=== PATIENT | male | born 1950 | race Caucasian/White ===

== ENCOUNTER 2025-03-29 08:09 | Outpatient (AMB) | payer MEDICARE, SELFPAY ==
--- NOTE | 2025-03-29 08:11 | AM.OFFWIN_ITS ---
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 - The pain began approximately 15 days a go and was initially localized to the hip, later radiating to the groin. - The patient describes the pain as zing ing and stabbing, occasionally severe enough to nearly cause falls. - The patient has a history of bilateral knee replacements in the past. - The patient remains active, engaging i n activities such as fishing, and uses Tylenol for pain management during these activities. - He has a follow up appointment with Dr Milagro Gregg in 2 weeks. - Previously had pain on the left hip bu t the pain had resolved and now is on the right. - The patient has not experienced numbne ss, tingling, or bowel/bladder dysfunction. - Has pain with ambulation and has been having a hard time controlling his pain. - He denies falls, CP, SOB, abd pain, sa ddle anesthesia, numbness, tingling, leg pain, or back pain, Physical Exam General: cooperative, healthy appearing and comfortable, patient oriented x3 Head: Normal to inspection, normocephalic/atraumatic Effort & Inspection: Normal respiratory effort and able to speak in complete sentences. Cardiac: RRR, no M/R/G noted. Normal S1 and S2. Respiratory: Clear to auscultation bilaterally. No w/r/r noted. Back/spine: Cervical, thoracic and lumbar spine normal to inspection. Cervical ROM normal, no midline spinous tenderness noted. Thoracic ROM normal, lumbar ROM normal. No midline vertebral spinous tenderness noted. No step offs noted. No TTP of the thoracic or lumbar paraspinous or paravertebral muscles. FROM of the hips bilaterally. No TTP of the pelvic brims, trocanteric bursas bilaterally. Adduction and abduction of the hips are intact. No click on ROM. DTR are 2+ on the lower extremities noted. Ambulates with a steady gait. Extremities: Straight leg raise test negative on right; Straight leg raise test negative on left; motor strength normal 5/5 bilaterally. Neuro: Sensation intact. No numbness or tingling reported. Patient was informed and verbally consented to the use of an ambient scribe for clinic note documentation during this visit. Review of Systems Const All systems reviewed & are unremarkable except as noted in HPI and below Physical Exam Vital Signs: Last Vital Signs Temp 98.1 F 03/29/25 08:17 Pulse 66 03/29/25 08:17 BP 142/66 H 03/29/25 08:17 Pulse Ox 95 03/29/25 08:17 Oxygen Delivery Method Room Air 03/29/25 08:17 BMI result Body Mass Index 38.2 Results Reviewed Results Reviewed: Reviewed his hip x-ray in the office Assessment & Plan Assessment & Plan (1) Hip pain, right: Code(s): M25.551 - Pain in right hip Plan Most likely arthritis vs strain vs bursitis vs tendonitis Plan - Plan includes obtaining x-rays to assess the extent of arthritis and potential need for hip replacement. - Consideration of a lidocaine patch and anti-inflammatory medication for pain management. - Flexeril as needed for pain. - Referral to Dr. Gregg for further evaluation and management, including potential cortisone injection. Orders: Orders XR hip RT w PEL1V Today M25.551 - Pain in right hip Medications: New lidocaine 4% 1 patch topical DAILY PRN 10 ea 0RF pain cyclobenzaprine 5 mg PO Q8H PRN 10 tabs 0RF Muscle Spasm naproxen 500 mg PO Q12H PRN 20 tabs 0RF pain 7 days Coding Level of Care Code New Pt Level 4 (44413) Diagnoses Hip pain, right M25.551
--- OUTSIDE RECORDS SUMMARY | 2025-03-29 08:11 | XMS_ITS | Clinical Summary ---
Author Organization [facility], Address [address] [place] [address] [place] [address] Phone Care Team Providers Care Medical Record Administrator Name Role Phone Ramon Galvan MD Primary Care Provider [phone] Allergies No known active allergies Medications amLODIPine (NORVASC) 5 MG tablet Take 5 mg by mouth 1 (one) time each day Active Aspirin 81 MG capsule Take 81 mg by mouth 10/23/2023 Active atorvastatin (LIPITOR) 40 MG tablet Take 40 mg by mouth 1 (one) time each day Active finasteride (PROSCAR) 5 MG tablet Take 5 mg by mouth 1 (one) time each day Active loratadine (Claritin) 10 MG tablet Take 10 mg by mouth 05/19/2019 Active metoprolol succinate XL (TOPROL XL) 25 MG 24 hr tablet Take 25 mg by mouth 1 (one) time each day Active tamsulosin (FLOMAX) 0.4 MG 24 hr capsule TAKE ONE CAPSULE BY MOUTH EVERY DAY AT SUPPER Active temazepam (RESTORIL) 15 MG capsule TAKE ONE CAPSULE BY MOUTH EVERY DAY AT BEDTIME NEEDED FOR SLEEP Active docusate sodium (COLACE) 100 MG capsule Take 100 mg by mouth in the morning and 100 mg in the evening. Active magnesium oxide 250 MG tablet Take 250 mg by mouth 1 (one) time each day Active Cholecalciferol (Vitamin D3) 50 MCG (1999) tablet Take by mouth Active Active Problems Problem Noted Date Diagnosed Date Renal mass 04/18/2024 Hypertensive disorder 04/18/2024 Social History Tobacco Use Types Packs/Day Years Used Date Smoking Tobacco: Never Assessed Sex and Gender Information Value Date Recorded Sex Assigned at Not on file Legal Sex Male 1:00 PM EDT Gender Identity Not on file Sexual Orientation Not on file Plan of Treatment Upcoming Encounters Date Type Department Care Team (Late st Contact Info) Description 04/17/2025 1:30 PM EDT Office [facility] [address] [place] [phone] Dylan Reyes MD [address] [place] [address] [place] [phone] Health Maintenance Due Date Last Done Comments Colorectal Cancer Screening: Annual FOBT 1999 Colorectal Cancer Screening: Colonoscopy 1999 Colorectal Cancer Screening: Sigmoidoscopy 1999 Influenza Vaccine (#1) 2025 0, 05/18/2019, 07/06/2012, Additional history exists Pneumococcal Vaccine: 50+ Years Completed 07/20/2017, 02/13/2015, 08/11/2006 Hepatitis B Vaccine Aged Out No longe r eligible based on patient's age to complete this topic Insurance Medicare [facility] Care Teams Medical Record Administrator Relationship Specialty Start Date End Date Ramon Galvan MD [facility] [place] PCP - General Internal Medicine 01/06/24
--- OUTSIDE RECORDS SUMMARY | 2025-03-29 08:11 | XMS_ITS | Patient Health Record ---
Author Organization [facility] Address [address] [place] [address] Care Team Providers Care Tank Assembler Name Role Phone Gigi Poe MD Primary Care Provider Unava ilTk Cornelius Unavailable [phone] Reason For Referral No Information Medications Medication SIG (Take, Route, Frequency, Duration) Notes Start Date End Date Status Loratadine 10 MG 1 tablet Orally Once a day; Duration: 30 day(s) Active Vitamin D-3 100 mg Active Magnesium 500 MG 1 tablet with a meal Orally Once a day; Duration: 30 day(s) Active Stool Softener 100 MG 1 capsule as neede d Orally Once a day; Duration: 30 day(s) Active Stool Softener 100 MG 1 capsule as neede d Orally Once a day; Duration: 30 day(s) Active Magnesium 500 MG 1 tablet with a meal Orally Once a day; Duration: 30 day(s) Active Vitamin D3 25 MCG (1000 UT) 1 capsule Orally Once a day; Duration: 30 day(s) Active Flurazepam HCl 15 MG Orally Once a day Unknown Temazepam 15 MG 1 capsule at bedtime as needed Orally Once a day Active Baby Aspirin low dose Active Tamsulosin HCl 0.4 MG 1 capsule Orally O nce a day; Duration: 30 day(s) Active Atorvastatin Calcium 40 MG 1 tablet Orally Once a day; Duration: 30 day(s) Active Temazepam 15 MG 1 capsule at bedtime as needed Orally Once a day Active Keflex 500 MG 1 capsule Orally cain ry 12 hrs; Duration: 10 day(s) 06/19/2021 Active Atorvastatin Calcium 40 MG 1 tablet Orally Once a day; Duration: 30 day(s) Active Tamsulosin HCl 0.4 MG 1 capsule Orally O nce a day; Duration: 30 day(s) Active Aspirin 81 MG 1 tablet Orally Once a day; Duration: 30 day(s) Active Loratadine 10 MG 1 tablet Orally Once a day; Duration: 30 day(s) Active Social History Tobacco Use: Social History Observation Description Date Details (start date - stop date) Former Smoker NA - NA Tobacco Use/Smoking Question Answer Notes Are you a: former smoker Additional Findings: Tobacco Non-User Ex-cigaret te smoker Alcohol Screen Question Answer Notes Did you have a drink containing alcohol in the p ast year? No Points 0 Interpretation Negative Tobacco use other than smoking: Question Answer Notes Are you an other tobacco user? No Problems Problem Type SNOMED Code ICD Code Onset Dates Problem Status W/U Status Risk Notes Problem Acquired hallux valgus (64245971) Hallux valgus (acquired), right foot (M20.11) Active confirmed Plan Of Treatment No Information Insurance Providers Payer Name Payer Address Payer Phone Subscriber Number Group Number Insured Name Patient Relationship to Insured Coverage Start Date Coverage End Date Medicare National Govt Sv[employer] Inc [address] [place] [address] [id number] Jigar Olvera Self - patient is the insured [employer] [address] [place] [address] [id number] Jigar Olvera Self - patient is the insured Medical (General) History Medical History History ICD Code Cancer Measles Mumps Chicken pox Gout Back,Hip,and Knee pain Broken bones Heart disease Surgical History Surgery Date(Month/Year) Knee Replacement, right 2016 Knee Replacement, left 2011
[2025-03-29 08:17] VITALS: BP 142/66; PULSE 66; TEMP 36.7; O2SAT 95; BMI 38.2
== END 2025-03-29 09:20 | disposition home or self-care (01) ==
PROVIDERS: PCP Internal Medicine; Visit Provider Physician Assistant Medical
DX: M25.551 Pain in right hip (principal)

== ENCOUNTER 2025-03-29 08:09 | Outpatient (REF) | payer MEDICARE, SELFPAY ==
--- NOTE | ~2025-03-29 | XR_ITS ---
CLINICAL HISTORY: M25.551 - Pain in right hip Exam: AP pelvis with AP and frog-leg lateral views of the right hip. Comparison: None. Findings: Bony alignment of the hip joints is anatomic. No acute fracture. [id number] degenerative change of both hip joints with joint space narrowing and osteophyte formation. No erosions. [id number] degenerative change of the sacroiliac joints with osteitis pubis. Impression: Degenerative changes as above. No acute finding. This document has been electronically signed by: Carlos Martin MD on 03/29/2025 09:29:28
== END 2025-03-29 08:10 | disposition home or self-care (01) ==
LOC: HO.HMGCX 08:09
PROVIDERS: PCP Internal Medicine; Visit Provider Physician Assistant Medical
DX: M25.551 Pain in right hip (principal)
CPT/HCPCS: 73502; 99202

== ENCOUNTER → 2025-03-29 08:44 | Outpatient (BNV) | payer MEDICARE, SELFPAY | PROVIDERS: PCP Internal Medicine; Visit Provider Radiology Diagnostic Radiology | DX: M16.11 Unilateral primary osteoarthritis, right hip (principal) | CPT/HCPCS: 73502 ==

== ENCOUNTER 2025-04-20 10:34 | Outpatient (AMB) | payer MEDICARE, SELFPAY ==
--- NOTE | 2025-04-20 10:43 | A.OFFVIS_ITS ---
Vital Signs 04/20/25 10:46 Height 5 ft 11 in Weight 233 lb BMI 32.5 Handedness Right Intake Visit Reasons: New pt - left hip pain Intake Note: Jigar is a 75 year old male who presents with complaints of intermittent back pain as well as bilateral hip pains, left greater than right. The patient describes his pains as sharp in nature. Most of the pain is along the lateral and posterior aspects of his hips. He has tried Naprosyn, cyclobenzaprine and lidocaine patches which gave him mild relief. He denies any numbness or tingling in either lower extremity. Allergies No Known Allergies (No Known Allergies*) Allergy (Verified 04/20/25 10:45) Medication List - Last Reconciled 04/20/25 by Philip Casey MD albuterol 90 mcg/actuation mcg inhalation .once daily amlodipine 10 mg PO DAILY aspirin (Adult Aspirin Regimen) 81 mg PO DAILY atorvastatin 40 mg PO DAILY cetirizine (Allergy Relief (cetirizine)) 10 mg PO DAILY PRN cholecalciferol (vitamin D3) 25 mcg PO DAILY cyclobenzaprine 5 mg PO Q8H PRN docusate sodium (Stool Softener) 100 mg PO DAILY finasteride 5 mg PO DAILY lidocaine 4% 1 patch topical DAILY PRN magnesium 250 mg PO DAILY metoprolol succinate ER 25 mg PO DAILY naproxen 500 mg PO Q12H PRN 7 days tamsulosin 0.4 mg PO QPM temazepam 15 mg PO BEDTIME PFSH Social History (Updated 04/20/25 @ 10:46 by Janet De) Alcohol intake: never Patient Tobacco Use Status: Never used Tobacco Current occupational status: retired Current occupation: right hand dominant Physical Exam Vital Signs: BMI result Body Mass Index 32.5 Const Other: Well-nourished well-developed very friendly male awake alert and oriented x3 in no acute distress Extrem Other: Bilateral lower extremity examination shows good capillary refill, no skin lesions noted, normal sensation light touch Bilateral hip examination shows mild discomfort with range of motion, mild tenderness over his bursa, no overlying skin lesions Results Reviewed Results Reviewed: X-rays of the patient's bilateral hip show mild to moderate diffuse joint space narrowing, no acute bony abnormalities Assessment & Plan Assessment & Plan (1) Bilateral hip pain: Code(s): M25.551 - Pain in right hip; M25.552 - Pain in left hip Category: Medical Plan Mr. Olvera presents with bilateral hip pains due to early degenerative joint disease as well as possible greater trochanteric bursitis. He also has low back pain most likely due to degenerative disc disease. I had a lengthy discussion with the patient regarding the treatment options. We will hold off on a cortisone injection for now. I did give him a prescription for a Medrol Dosepak. He will contact me prior to his follow-up appointment in 2 months should any questions or concerns arise. Feel free to call me at any time should questions regarding his orthopedic management arise. I spent 21 minutes in reviewing the patient's records and imaging studies, seeing the patient and documenting in the medical record. Medications: New 2 methylprednisolone (Medrol (Nicola)) PO PER PKG DIR 21 ea 0RF Coding Level of Care Code New Pt Level 3 (39524) Complex EM visit Add On G2211 Diagnoses Bilateral hip pain M25.551; M25.552
[2025-04-20 10:46] VITALS: BMI 32.5
--- OUTSIDE RECORDS SUMMARY | 2025-04-20 11:27 | XMS_ITS | Patient Health Record ---
Author Organization [facility] Address [address] [facility] [address] Care Team Providers Care Fur Tailor Name Role Phone Gigi Poe MD Primary Care Provider Unava ilTk Cornelius Unavailable [phone] Reason For Referral No Information Medications Medication [...] Status Risk Notes Problem Acquired hallux valgus ([id number]) Hallux valgus (acquired), right foot (M20.11) Active confirmed Plan Of Treatment No Information Insurance Providers Payer Name Payer Address Payer Phone Subscriber Number Group Number Insured Name Patient Relationship to Insured Coverage Start Date Coverage End Date Medicare National Govt Svcs Inc [address] [place] [address] [id number] Jigar Olvera Self - patient is the insured [employer] [address] [place] [address] [id number] Jigar Olvera Self - patient is the insured Medical (General) History Medical History History ICD Code Cancer Measles Mumps Chicken pox Gout Back,Hip,and Knee pain Broken bones Heart disease Surgical History Surgery Date(Month/Year) Knee Replacement, right 2016 Knee Replacement, left 2011
--- OUTSIDE RECORDS SUMMARY | 2025-04-20 11:27 | XMS_ITS | Clinical Summary ---
Author Organization [facility] Address [address] [place] [address] Phone Care Team Providers Care Server Name Role Phone Ramon Galvan MD Primary Care Provider [phone] Allergies No known active allergies Medications amLODIPine [...] Date Renal mass 04/18/2024 Hypertensive disorder 04/18/2024 Encounters Date Type Department Care Team Description 04/17/2025 1:30 PM EDT Office Visit [facility], [address] [place] [address] Dylan Reyes MD Stage 3b chronic kidney disease (HCC) (Primary Dx) 04/13/2025 Orders Only [facility] [address] [place] [address] Fabiola Clark Stage 3b chronic kidney disease (HCC) (Primary Dx); Vitamin D deficiency, not otherwise specified from Last 3 Months Social History Tobacco Use Types Packs/Day Years Used Date Smoking Tobacco: Never Assessed Sex and Gender Information Value Date Recorded Sex Assigned at Not on file Legal Sex Male 1:00 PM EDT Gender Identity Not on file Sexual Orientation Not on file Plan of Treatment Upcoming Encounters Date Type Department Care Team (Late st Contact Info) Description 04/25/2026 2:00 PM EDT Office Visit [facility] [address] [place] [phone] Dylan Reyes MD [address] [place] [address] [place] [address] Health Maintenance Due Date Last Done Comments Colorectal Cancer Screening: Annual FOBT 1999 Colorectal Cancer Screening: Colonoscopy 1999 Colorectal Cancer Screening: Sigmoidoscopy 1999 Influenza Vaccine (#1) 2025 0, 05/18/2019, 07/06/2012, Additional history exists Pneumococcal Vaccine: 50+ Years Completed 07/20/2017, 02/13/2015, 08/11/2006 Hepatitis B Vaccine Aged Out No longe r eligible based on patient's age to complete this topic Insurance Medicare [facility] Care Teams Server Relationship Specialty Start Date End Date Ramon Galvan MD [facility] [place] PCP - General Internal Medicine 01/06/24
== END 2025-04-20 11:08 | disposition home or self-care (01) ==
LOC: HO.HOS 10:35
PROVIDERS: PCP Internal Medicine; Visit Provider Orthopaedic Surgery
DX: M25.551 Pain in right hip (principal); M25.552 Pain in left hip
CPT/HCPCS: 99203; G2211

== ENCOUNTER → 2025-04-20 10:34 | Outpatient (BNVA) | payer MEDICARE, SELFPAY | PROVIDERS: PCP Internal Medicine; Visit Provider Orthopaedic Surgery | DX: M25.552 Pain in left hip (principal); M25.551 Pain in right hip | CPT/HCPCS: 99202 ==

== ENCOUNTER 2025-07-12 10:51 | Outpatient (AMB) | payer MEDICARE, SELFPAY ==
--- NOTE | 2025-07-12 11:18 | MHC.OFFVIS ---
Vital Signs 07/12/25 11:21 Height 5 ft 11 in Weight 232 lb BMI 32.4 Intake Visit Reasons: OV- Left hip follow up Intake Note: Jigar is a 75 year old male who presents for follow up of his left hip pain. The patient states that he got fairly good relief from the Medrol Dosepak. He reports mild discomfort in his left hip. Continues to do yd work and fish for exercise. At this point the patient's symptoms are tolerable to him. Allergies No Known Allergies (No Known Allergies*) Allergy (Verified 07/12/25 11:21) Medication List - Last Reconciled 07/12/25 by Philip Casey MD albuterol 90 mcg/actuation mcg inhalation .once daily amlodipine 10 mg PO DAILY aspirin (Adult Aspirin Regimen) 81 mg PO DAILY atorvastatin 40 mg PO DAILY cetirizine (Allergy Relief (cetirizine)) 10 mg PO DAILY PRN cholecalciferol (vitamin D3) 25 mcg PO DAILY cyclobenzaprine 5 mg PO Q8H PRN docusate sodium (Stool Softener) 100 mg PO DAILY finasteride 5 mg PO DAILY lidocaine 4% 1 patch topical DAILY PRN magnesium 250 mg PO DAILY meloxicam 15 mg PO DAILY PRN methylprednisolone (Medrol (Nicola)) PO PER PKG DIR metoprolol succinate ER 25 mg PO DAILY tamsulosin 0.4 mg PO QPM temazepam 15 mg PO BEDTIME PFSH Social History (Updated 04/20/25 @ 10:46 by Janet De) Alcohol intake: never Patient Tobacco Use Status: Never used Tobacco Current occupational status: retired Current occupation: right hand dominant Physical Exam Vital Signs: BMI result Body Mass Index 32.4 Const Other: Well-nourished well-developed very friendly male awake alert and oriented x3 in no acute distress Extrem Other: Left hip examination shows slightly decreased range of motion when compared to his right hip, mild discomfort with range of motion, minimal tenderness over his bursa Assessment & Plan Assessment & Plan (1) Arthritis of left hip: Code(s): M16.12 - Unilateral primary osteoarthritis, left hip Category: Medical Plan Mr. Olvera presents with intermittent left hip discomfort due to early degenerative joint disease. I had a lengthy discussion with the patient regarding the treatment options. At this point the patient's symptoms are tolerable to him. He will continue with his home exercise program. He will follow up with me on an as-needed basis should symptoms worsen in any way. Feel free to call me at any time should questions regarding her orthopedic management arise. I spent 21 minutes in reviewing the patient's records and imaging studies, seeing the patient and documenting in the medical record. Coding Level of Care Code Est Pt Level 3 (37595) Complex EM visit Add On G2211 Diagnoses Arthritis of left hip M16.12
[2025-07-12 11:21] VITALS: BMI 32.4
--- OUTSIDE RECORDS SUMMARY | 2025-07-12 13:14 | XMS_ITS | Patient Health Record ---
Author Organization [facility] Address [address] [place] [address] Care Team Providers Care Optical Scientist Name Role Phone Gigi Poe MD Primary Care Provider Unava ilTk Cornelius Unavailable [phone] Reason For Referral No Information Medications Medication [...] Status Risk Notes Problem Acquired hallux valgus ([id number]) Hallux valgus (acquired), right foot (M20.11) Active confirmed Plan Of Treatment No Information Insurance Providers Payer Name Payer Address Payer Phone Subscriber Number Group Number Insured Name Patient Relationship to Insured Coverage Start Date Coverage End Date Medicare National Govt Svcs Inc [address] [place] [address] [id number] Jigar Olvera Self - patient is the insured [employer] [address] [place] [address] [id number] Jigar Olvera Self - patient is the insured Medical (General) History Medical History History ICD Code Cancer Measles Mumps Chicken pox Gout Back,Hip,and Knee pain Broken bones Heart disease Surgical History Surgery Date(Month/Year) Knee Replacement, right 2016 Knee Replacement, left 2011
--- OUTSIDE RECORDS SUMMARY | 2025-07-12 13:14 | XMS_ITS | Clinical Summary ---
Author Organization [facility] Address [address] [address] Phone Care Team Providers Care Basket Assembler Name Role Phone Ramon Galvan MD Primary Care Provider [phone] Allergies No known active allergies Medications amLODIPine [...] Office Visit [facility], [address] [place] [address] Dylan Reyes MD Stage 3b chronic kidney disease (HCC) (Primary Dx) 04/13/2025 Orders Only [facility] [address] [place] [address] Fabiola Clark Stage 3b chronic kidney disease [...] Visit [facility] [address] [place] [phone] Dylan Reyes MD [address] [place] [address] [place] [address] Health Maintenance Due Date Last Done Comments Colorectal Cancer Screening: Annual FOBT 1999 Colorectal Cancer Screening: Colonoscopy 1999 Colorectal Cancer Screening: Sigmoidoscopy 1999 Influenza Vaccine (#1) 2025 0, 05/18/2019, 07/06/2012, Additional history exists Pneumococcal Vaccine: 50+ Years Completed 07/20/2017, 02/13/2015, 08/11/2006 Hepatitis B Vaccine Aged Out No longe r eligible based on patient's age to complete this topic Insurance Medicare [facility] Care Teams Basket Assembler Relationship Specialty Start Date End Date Ramon Galvan MD [facility] [place] PCP - General Internal Medicine 01/06/24
--- OUTSIDE RECORDS SUMMARY | 2025-07-12 13:15 | XMS_ITS | Encounter Summary ---
Author Organization [facility] Address [address] [place] [address] Phone Care Team Providers Care Radiagraph Operator Name Role Phone Ramon Galvan MD Primary Care Provider [phone] Encounter Details Date Type Department Care Team (Late st Contact Info) Description 01/06/2024 Documentation Only [facility] [address] [place] [address] Giovanni [place] [address] [place] [id number] Social History Tobacco Use Types Packs/Day Years Used Date Smoking Tobacco: Never Assessed Sex and Gender Information Value Date Recorded Sex Assigned at Not on file Legal Sex Male 1:00 PM EDT Gender Identity Not on file Sexual Orientation Not on file documented as of this encounter Plan of Treatment Upcoming Encounters Date Type Department Care Team (Late st Contact Info) Description 04/25/2026 2:00 PM EDT Office Visit [facility] [address] [place] [address] Dylan Reyes MD [address] [place] [address] [place] [address] documented as of this encounter Visit Diagnoses Not on filedocumented in this encounter Care Teams Radiagraph Operator Relationship Specialty Start Date End Date Ramon Galvan MD [facility] [place] [place] PCP - General Internal Medicine 01/06/24 documented as of this encounter
== END 2025-07-12 11:46 | disposition home or self-care (01) ==
LOC: HO.HOS 10:52
PROVIDERS: PCP Internal Medicine; Visit Provider Orthopaedic Surgery
DX: M16.12 Unilateral primary osteoarthritis, left hip (principal)
CPT/HCPCS: 99213; G2211

== ENCOUNTER → 2025-07-12 10:51 | Outpatient (BNVA) | payer MEDICARE, SELFPAY | PROVIDERS: PCP Internal Medicine; Visit Provider Orthopaedic Surgery | DX: M16.12 Unilateral primary osteoarthritis, left hip (principal) | CPT/HCPCS: 99212 ==